=== PATIENT | male | born 1985 | race Two or more races ===

== ENCOUNTER 2019-08-04 09:02 | Day surgery (SDC) | payer OTHER ==
[~2019-08-04 09:02] MED LIST: Buffered Lidocaine 1% SYRIN* 1 ML/SYRINGE INTRADERM ONE; Dexamethasone IV* 4 MG/ML 1 ML (4 MG) IV SLOW PU ONE; Famotidine IV* 10 MG/ML 2 ML (20 mg) IV ONE; Lactated Ringers 1000 ML Bag* 1,000 ML IV SCH
[2019-08-04] MEDS ORDERED: Dexamethasone IV* 4 MG/ML 1 ML (4 MG) ONE (09:25)
[2019-08-04] MEDS ORDERED: Famotidine IV* 10 MG/ML 2 ML (20 mg) ONE (09:25)
[2019-08-04] MEDS ORDERED: Lidocaine 1% INJ* 10 MG/ML 30 ML SDV ONE (10:19)
[2019-08-04] MEDS ORDERED: Midazolam* 1 MG/ML 5 ML VIAL (5 MG) ONE (10:25)
[2019-08-04] MEDS ORDERED: fentaNYL* 50 MCG/ML 2 ML VIAL (100 MCG VIAL) ONE (10:25)
[2019-08-04] MEDS ORDERED: Ondansetron INJ* 2 MG/ML VIAL ONE (10:26)
[2019-08-04] MEDS ORDERED: Ketorolac INJ* 30 MG/ML 1 ML VIAL ONE (10:26)
[2019-08-04] MEDS ORDERED: Propofol* 10 MG/ML 20 ML BTL ONE (10:26)
[2019-08-04] MEDS ORDERED: Naloxone* 0.4 MG/ML 1 ML VIAL IV PRN (10:39)
[2019-08-04] MEDS ORDERED: Ondansetron INJ* 2 MG/ML VIAL IV PRN (10:39)
[2019-08-04] MEDS ORDERED: oxyCODONE/Acetamin 5/325 MG* TAB PO PRN (10:39)
[2019-08-04 11:26] VITALS: BP 112/72
--- NOTE | 2019-08-04 21:38 | OP ---
DATE OF OPERATION: 08/04/19 [facility] DATE OF : 85 SURGEON: Yomaira Fernandez MD INSURANCE VERIFICATION CLERK: KANDACE Jason ANESTHESIA: Local MAC. PRE-OP DIAGNOSIS: Left long finger mass. POST-OP DIAGNOSIS: Left long finger mass. OPERATIVE PROCEDURE: Removal of left long finger mass. ESTIMATED BLOOD LOSS: Zero. TOURNIQUET TIME: Approximately 10 minutes. INDICATION FOR PROCEDURE: Brian is a 34-year-old man who has a painful mass on the volar aspect of the left long finger. He presents for excision. DESCRIPTION OF PROCEDURE: The patient was brought to the operating room, was given a sedation anesthetic and a local infiltration of 10 cc of 1% plain lidocaine. The skin of his right hand and forearm was prepped and draped in the usual sterile fashion. The hand and forearm were exsanguinated and tourniquet elevated to 250 mmHg. A transverse incision was made over the mass and we dissected bluntly through the subcutaneous tissue down to the flexor tendon sheath. There was a ganglion cyst emanating from the flexor tendon sheath. It was removed and sent for pathology and then the A1 dominic was released to prevent triggering of the flexor tendon. The wound was irrigated and the skin edges were reapproximated with 4-0 nylon suture. The wound was dressed with Xeroform, 4x4, Webril, and an Dequan wrap. The patient tolerated the procedure well and was brought to the recovery room in good condition. [id number] #: [id number] MTDD
== END 2019-08-04 11:37 | disposition home or self-care (01) ==
LOC: OREAST 09:02
PROVIDERS: ATTEND Orthopaedic Surgery
DX: M67.442 Ganglion, left hand (principal); I47.1 Supraventricular tachycardia
CPT/HCPCS: 88305; J1100; J1885; J2250; J2405; J2704; J3010